=== PATIENT | male | born 1960 | race Caucasian/White ===

== ENCOUNTER 2017-07-27 17:48 | Emergency (ER) | payer OTHER ==
[2017-07-27 18:08] LABS: #Lymphocytes 1.9 thou/uL (1.20-3.40); #Monocytes 0.8 thou/uL (0.11-0.59); %Basophils 0.8 % (0.0-1.0); %Eosinophils 0.7 % (0.0-10.0); %Lymphocytes 32.4 % (21.0-51.0); %Monocytes 13.9 % (0.0-10.0); %Neutrophils 52.2 % (42.0-75.0); Hemoglobin 17.8 g/dL (14.0-18.0); Mean Corpuscular HGB CONC 35.1 g/dL (32.0-36.0); Mean Corpuscular Volume 91.1 fl (80.0-94.0); Mean Platelet Volume 7.7 fL (7.4-10.4); Platelet Count 190 thou/uL (130-400); Red Blood Cell (RBC) Count 5.56 mill/uL (4.70-6.10); White Blood Cell (WBC) Count 5.8 thou/uL (4.8-10.8)
[2017-07-27 18:33] LABS: CKMB 2.1 ng/mL (0-6.6); Troponin I 0.011 ng/mL (< 0.028)
[2017-07-27 18:41] LABS: ALT (SGPT) 17 U/L (8-55); AST (SGOT) 32 U/L (5-34); Albumin 4.1 g/dL (3.5-5.0); Alkaline Phosphatase 80 U/L (40-150); Anion Gap 14 mmol/L (10-20); BUN (Urea Nitrogen) 15 mg/dL (8.4-25.7); Bilirubin, Total 0.8 mg/dL (0.2-1.2); CK (CPK) 58 U/L (30-200); Calc. Creatinine Clearance 0 mL/min (70-130); Calcium 10.4 mg/dL (7.8-10.44); Carbon Dioxide 21 mmol/L (22-29); Chloride 104 mmol/L (98-107); Estimated GFR-MDRD 70; Globulin 4.2 g/dL (2.4-3.5); Glucose 124 mg/dL (70-105); Lipase 55 U/L (8-78); Potassium 4.5 mmol/L (3.5-5.1); Protein, Total 8.3 g/dL (6.0-8.3); Sodium 134 mmol/L (136-145)
--- NOTE | 2017-07-27 18:58 | RAD ---
PORTABLE AP CHEST X-RAY: 07/27/17 HISTORY: Chest pain. FINDINGS: The cardiac silhouette and pulmonary vasculature are within normal limits. The lungs are clear. [place] us structures are intact. There is mild elevation left hemidiaphragm. IMPRESSION: No acute cardiopulmonary process. POS: [facility]
== END 2017-07-27 19:24 | disposition home or self-care (01) ==
LOC: ERS 17:48
DX: R07.89 Other chest pain (principal); I48.91 Unspecified atrial fibrillation; E78.5 Hyperlipidemia, unspecified; I10 Essential (primary) hypertension; Z79.899 Other long term (current) drug therapy
CPT/HCPCS: 71045; 80053; 82553; 83690; 83880; 84484; 85025; 93005; 94760

== ENCOUNTER 2017-08-19 06:04 | Day surgery (SDC) | payer OTHER, BC ==
[2017-08-18 12:13] VITALS: BMI 30.2
[2017-08-19] MEDS ORDERED: Diprivan 20 ML ONE (06:18)
--- NOTE | 2017-08-19 09:07 | DIS ---
He was seen in the outpatient facility today for an elective cardioversion for his atrial fibrillatio n. DIAGNOSIS: Atrial fibrillation. His other diagnoses include hypertension, diabetes and excessive al cohol use. DISCHARGE DIAGNOSES: Atrial fibrillation. His other diagnoses include hypertension, diabetes and ex cessive alcohol use. PROCEDURES IN HOSPITAL: Electrical cardioversion of atrial fibrillation back to normal sinus rhythm. DISCHARGE MEDICATIONS: Metoprolol succinate ER 100 mg daily, amlodipine 5 mg daily, fenofibrate 120 mg daily, Xarelto 20 mg daily, and Multaq 400 mg b.i.d. with meals. He will continue him back in the office in the next 2 weeks with repeat evaluation and EKG. At some point in time he will need to undergo stress testing. This was advised in the past, the insurance ap parently did not cover it and we will try to reestablish this. The patient has multiple risk factors for coronary artery disease which does include atrial fibrillation as well as his diabetes and hyper tension. His followup will be with me in the next 1-2 weeks. He will see also his primary care physician as i ndicated by that physician and he will also follow up with the plant wrapper in the next month or so. He already apparently has an appointment with him set up. HOSPITAL COURSE: As noted above. He presented with atrial fibrillation which has been an ongoing pr oblem and was advised to undergo an attempt at electrical cardioversion. He had been on Xarelto sinc e May and he underwent the procedure today without difficulties or complications. He was succes sfully converted with one attempt at 200 joules. He does unfortunately continue to drink at least a 12 pack beer a day which may obviously put him at increased risk for further atrial fibrillation. He also had problems taking the Multaq saying it caused him to have nausea and diarrhea and he stopped taking the medication. He only took it for 1-2 days prior to the procedure and has not had any recen tly or at least in the last 1-2 days. At this time, we will advise him to resume that medication wit h meals and hopefully this will decrease the nausea and hopefully the diarrhea also. If not, may nee d to find another medication for this gentleman. However, I do not know whether he has underlying co ronary artery disease which makes it somewhat difficult for some of the anti-arrhythmic medications i f he has undiagnosed coronary artery disease and ischemia. His ejection fraction had been stable at 50-55% and there has been no history in the past of known coronary artery disease.
--- NOTE | 2017-08-19 09:19 | OP ---
INDICATION FOR PROCEDURE: A 57-year-old patient with persistent atrial fibrillation. He was advised that he has been on Xarelto since May. He was advised to undergo electrocardioversion of his a trial fibrillation. He was taken to the recovery area where he underwent short acting propofol. [place] malloy one attempt at 200 joules, he was successfully converted back to normal sinus rhythm without compl ications or difficulties. His heart rate was in the 80s after he converted back to sinus rhythm.
== END 2017-08-19 09:15 | disposition home or self-care (01) ==
LOC: CCL 06:04
PROVIDERS: ATTEND Internal Medicine Cardiovascular Disease
DX: I48.1 Persistent atrial fibrillation (principal); I10 Essential (primary) hypertension; E11.9 Type 2 diabetes mellitus without complications; Z79.01 Long term (current) use of anticoagulants; Z79.899 Other long term (current) drug therapy; Z88.8 Allergy status to other drugs, medicaments and biological substances; Z72.89 Other problems related to lifestyle; Z98.818 Other dental procedure status
CPT/HCPCS: J2704

== ENCOUNTER 2020-03-28 05:41 | Outpatient (CLI) | payer OTHER ==
[2020-03-29 14:48] LABS: SARS-CoV-2 MS2 Positive; SARS-CoV-2 N Gene Negative; SARS-CoV-2 S Gene Negative; SARS-CoV-2 by NAA Not Detected (NotDetected); SARS-CoV-2 orf1ab Negative
== END 2020-03-28 05:42 | disposition home or self-care (01) ==
LOC: LABBT 05:41
PROVIDERS: ATTEND Internal Medicine Cardiovascular Disease
DX: I48.91 Unspecified atrial fibrillation (principal); Z20.828 Contact with and (suspected) exposure to other viral communicable diseases
CPT/HCPCS: 87635; U0003

== ENCOUNTER 2020-04-02 10:34 | Observation (INO) | payer OTHER ==
[2020-04-02] MEDS ORDERED: Heparin 10,000 UNITS/ 10 ML VIAL ONE ×2 (13:45→14:53)
[2020-04-02] MEDS ORDERED: Fentanyl 100 MCG/2 ML VIAL ONE ×4 (13:51→17:15)
[2020-04-02] MEDS ORDERED: Lidocaine 2% Jelly 5 ML TUBE ONE (14:18)
[2020-04-02] MEDS ORDERED: Phenylephrine 10 MG/ML VIAL ONE (14:40)
[2020-04-02] MEDS ORDERED: Heparin 25,000 units/D5W 500 ML ONE (14:54)
[2020-04-02] MEDS ORDERED: Midazolam HCl 2 mg/2 ml Vial ONE (15:33)
[2020-04-02] MEDS ORDERED: Dexamethasone 20 MG/5 ML VIAL ONE (15:36)
[2020-04-02] MEDS ORDERED: PHENYLEPHRINE-NS 100 MCG/ML 10 ML SYRINGE ONE (15:36)
[2020-04-02] MEDS ORDERED: Ondansetron PF 4 MG/2 ML Vial ONE (15:36)
[2020-04-02] MEDS ORDERED: Lidocaine 1% PF 5 ML VIAL ONE (15:36)
[2020-04-02] MEDS ORDERED: Rocuronium Bromide 10 MG/ML (10ML VIAL) ONE (15:36)
[2020-04-02] MEDS ORDERED: PROPOFOL 200 MG/20 ML VIAL ONE (15:36)
[2020-04-02] MEDS ORDERED: Isoproterenol 0.2 MG/1 ML AMP ONE (16:51)
[2020-04-02] MEDS ORDERED: Protamine Sulfate 50 MG/5 ML VIAL ONE (17:57)
[2020-04-02] MEDS ORDERED: SUGAMMADEX SODIUM 200 MG/2 ML VIAL ONE (18:05)
[2020-04-02] MEDS ORDERED: Ketorolac Tromethamine 30 MG/ML VIAL ONE (18:33)
[2020-04-02 20:12] VITALS: BMI 30.5
[2020-04-02] MEDS ORDERED: Ketorolac Tromethamine 30 MG/ML VIAL IVP PRN (21:13)
[2020-04-02] MEDS ORDERED: Ondansetron HCl/PF 4 MG/2 ML Vial IVP PRN (21:15)
[2020-04-02] MEDS ORDERED: Promethazine HCl 25 MG/ML VIAL IM/IV PRN (21:15)
[2020-04-02] MEDS ORDERED: Acetaminophen/Codeine 30-300mg Tablet PO PRN ×2 (21:15)
--- NOTE | 2020-04-02 23:36 | OP ---
DATE OF PROCEDURE: 04/02/2020 ADDITIONAL REFERRING PHYSICIAN: Dr. Lilliam Max. REASON FOR PROCEDURE: Mr. Haro is a 59-year-old gentleman, history of paroxysmal atrial fibrillation. He had a cardioversion in 2018, but had recurred and has been persisting over the last few months. He has moderate left atrial enlargement, has been anticoagulated without fail with oral anticoagulants. Previously, he has been tried on Multaq. DESCRIPTION OF PROCEDURE: Patient received general anesthesia by anesthesia specialist. Left and right femoral vein were prepped, draped, anesthetized using subcutaneous lidocaine, and under ultrasound guidance, both femoral veins were cannulated x2. On the at left side, an 8-Yemeni and an 11-Yemeni sheath were used. Through these sheaths, an intracardiac echocardiogram probe was passed into the esophagus to monitor the transeptal puncture, the pericardial space, and the catheter manipulation throughout the procedure. Also from the left femoral vein, a Decanav mapping catheter was advanced to the right ventricle, his bundle right atrium, and CS position. From the right femoral venous access, two 8-Yemeni short sheath were exchanged to two SL1 sheaths. IV heparin was administered at this point in a bolus and drip fashion and ACT was checked periodically and heparin was adjusted to keep ACT over 350. The transseptal puncture x2 were performed under ultrasound and fluoroscopic guidance. Through the SL1 sheath, a ThermoCool SFST and a 20-pole Lasso catheter were advanced to the left atrium. 3D map of the left atrium was obtained. Two left-sided and two right-sided pulmonary veins were noted. Standard pulmonary venous isolation procedure was performed. Also, a superior line and an inferior line were used to achieve isolation of the posterior wall. Minimal conduction was noted at the end of this procedure and posterior wall at the esophageal sites only extensive ablation, the patient remained in atrial fibrillation. Eventually, cardioversion was performed with 300 joule shock to restore sinus rhythm. During catheter manipulation, an additional atrial flutter was induced, which appeared to be isthmus dependent flutter in morphology but terminated during mapping and did not reinduce. Throughout the posterior wall ablations, close attention was paid to the esophageal temperature to avoid excessive heating, any temperature rises were met with extra high-speed irrigation through the ablation catheter. Isuprel was administered at this point and any reconnections re-ablated. The patient remained in sinus rhythm at the end of the procedure. Catheters were removed from the left side and long sheaths were exchanged for short sheaths. IV heparin was stopped and then reversed with protamine. Vascade closure was performed in all four femoral venous access sites. Prior to removing the catheters, intracardiac echocardiogram probe proved no change in the baseline small pericardial effusion and also pericardial silhouette did not change significantly. A total of 33 minutes and 25 seconds of RF ablation was delivered at 40 harris, 113 ablation lesion was counted. NUMERICAL FINDINGS: In sinus rhythm during Isuprel, the cycle length was 523 milliseconds, AZ 99 milliseconds, QRS 84 milliseconds, QT 453 milliseconds, AH 108 milliseconds, HV 44 milliseconds. AV Wenckebach cycle length was 340 milliseconds. Retrograde Wenckebach cycle length was 480 milliseconds. On Isuprel, the AV radha ERP was 500/180 milliseconds. No dual AV radha physiology was demonstrated. Concentric retrograde VA conduction is seen during LV pacing from the ablation catheter. CONCLUSION: 1. Atrial fibrillation at baseline. 2. Moderate scarring noted throughout the left atrium. 3. Standard pulmonary venous isolation procedure and posterior wall isolation were performed with minimal posterior wall residual at the esophageal sites. 4. Cardioversion restored sinus rhythm. 5. No changes of the baseline small pericardial effusion and no other complications noted. PLAN: Continue oral anticoagulation. Monitor for recurrent arrhythmias. Job ID: [id number]
[2020-04-02] MEDS: Sucralfate 1 GM TAB PO SCH (23:56)
[2020-04-03] MEDS: Sucralfate 1 GM TAB PO SCH (05:31)
[2020-04-03 07:32] VITALS: BP 146/88; TEMP 98.2
[2020-04-03] MEDS ORDERED: Furosemide 40 MG/4 ML VIAL SLOW IVP SCH (08:56)
[2020-04-03] MEDS ORDERED: Potassium Chloride 20 MEQ TAB PO SCH (08:56)
[2020-04-03] MEDS ORDERED: Rivaroxaban 10 MG TAB PO SCH (09:00)
[2020-04-03] MEDS ORDERED: Amlodipine 5 MG TAB PO SCH (09:00)
[2020-04-03] MEDS ORDERED: Metoprolol Tartrate 100 MG TAB PO SCH (09:00)
[2020-04-03] MEDS ORDERED: Fenofibrate Nanocrystallized 145 MG TAB PO SCH (09:00)
[2020-04-03] MEDS ORDERED: Lorazepam 2 MG/ML VIAL SLOW IVP PRN (09:19)
--- NOTE | 2020-04-04 05:45 | DIS ---
DATE OF ADMISSION: 04/02/2020 DATE OF DISCHARGE: 04/03/2020 23-hour observation. DIAGNOSIS: Paroxysmal atrial fibrillation. CONDITION AT DISCHARGE: Stable. HISTORY OF PRESENT ILLNESS: Mr. Haro is a 59-year-old gentleman with a history of paroxysmal atrial fibrillation. He underwent cardioversion in 2018, did have recurrence and was seen to have moderate left atrial enlargement. He was under adequate anticoagulation for 30 days, previously tried on Multaq, but ultimately elected for an ablation procedure. There was moderate scarring noted throughout the left atrium. The pulmonary veins were isolated in addition to the posterior wall. Cardioversion is required that restored sinus rhythm. Total ablation time was 33 minutes and 25 seconds. He did well overnight with no recurrent atrial arrhythmias or bleeding complications at the groin site. He did have some shortness of breath, but overall is eager to discharge home. He is slightly anxious and in the initial stages of alcohol withdrawal tremors this morning. OBJECTIVE: VITAL SIGNS: Stable. Heart rate 83, blood pressure 146/79, respirations 16, and oxygen 96% on room air. GENERAL: The patient is alert and oriented. He does appear anxious with a resting tremor. He is afebrile. He is in no apparent distress. Resting in bed at the time of the exam. HEENT: Normocephalic, atraumatic. Sclerae anicteric. EOMs are intact. Oral mucosa is moist and pink with adequate dentition. NECK: Supple. Positive for jugular venous distention. There is no lymphadenopathy. Trachea is midline. LUNGS: Some bibasilar crackles throughout, otherwise no wheezes or rhonchi appreciated. CARDIAC: Heart rate is irregularly irregular with crisp S1 and S2. PMI is nondisplaced. ABDOMEN: Obese, soft, and nontender without palpable masses. EXTREMITIES: Bilateral groin sites are stable without hematoma or evidence of bleeding complication. Bilateral lower extremities are warm and dry to touch without clubbing, cyanosis, or edema. NEUROLOGIC: Nonfocal. As mentioned, he is appearing somewhat anxious and in the starting phase of alcohol withdrawal tremor. Gait was assessed and stable. DISCHARGE INSTRUCTIONS: No lifting more than 15 pounds for 1 week. No soaking baths for 1 week. No driving for 1 week, and may resume activity gradually and as tolerated. This morning, he admitted to heavy alcohol intake and has experienced withdrawal before. These symptoms were mitigated with a dose of 1 mg Ativan. He was instructed not to drive and his , who picked him up, is also aware of his driving instructions. He will follow up in 6 weeks or sooner if symptoms dictate. 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 He was highly encouraged to cut back on his alcohol intake. DISCHARGE MEDICATIONS: Resuming home medications as previously taken. Continue Xarelto 20 mg q.p.m. New prescription for: 1. Protonix 40 mg daily x30 days. 2. Carafate 1 g before meals and at bedtime x2 weeks. 3. Lasix 40 mg daily x3 days and as needed, to be taken with K-Dur 20 mEq daily x3 days, then just Lasix. No additional changes to his home medication list. Job ID: [id number] MTDD
--- NOTE | 2020-04-06 13:03 | EKG ---
Test Reason : STAT Blood Pressure : / mmHG Vent. Rate : 100 BPM Atrial Rate : 100 BPM P-R Int : 198 ms QRS Dur : 098 ms QT Int : 364 ms P-R-T Axes : 046 -02 043 degrees QTc Int : 469 ms Normal sinus rhythm Septal infarct , age undetermined T wave abnormality, consider anterior ischemia Abnormal ECG Confirmed by SAROJ WALSH MD ([id number]) on 04/06/2020 1:02:53 PM Referred By: Confirmed By:SAROJ WALSH MD
--- NOTE | 2020-04-06 13:05 | EKG ---
Test Reason : Blood Pressure : / mmHG Vent. Rate : 086 BPM Atrial Rate : 086 BPM P-R Int : 206 ms QRS Dur : 102 ms QT Int : 376 ms P-R-T Axes : 068 014 040 degrees QTc Int : 449 ms Normal sinus rhythm T wave abnormality, consider anterior ischemia Abnormal ECG When compared with ECG of 02-APR-2020 18:23, (Unconfirmed) Criteria for Septal infarct are no longer Present Confirmed by SAROJ WALSH MD ([id number]) on 04/06/2020 1:05:16 PM Referred By: JAMAAL Confirmed By:SAROJ WALSH MD
== END 2020-04-03 09:45 | disposition home or self-care (01) ==
LOC: CCL 10:34 → 2SW 12:23
PROVIDERS: ADMIT Internal Medicine Cardiovascular Disease; ATTEND Internal Medicine Cardiovascular Disease
PROC: 4A023FZ Measurement of Cardiac Rhythm, Percutaneous Approach (ICD-10-PCS; principal; 2020-04-02)
PROC: 4A0234Z Measurement of Cardiac Electrical Activity, Percutaneous Approach (ICD-10-PCS; 2020-04-02)
PROC: 02583ZZ Destruction of Conduction Mechanism, Percutaneous Approach (ICD-10-PCS; 2020-04-02)
PROC: 02K83ZZ Map Conduction Mechanism, Percutaneous Approach (ICD-10-PCS; 2020-04-02)
DX: I48.19 Other persistent atrial fibrillation (principal); I51.7 Cardiomegaly; I10 Essential (primary) hypertension; E11.9 Type 2 diabetes mellitus without complications; E78.5 Hyperlipidemia, unspecified; H91.90 Unspecified hearing loss, unspecified ear; Z79.01 Long term (current) use of anticoagulants; Z79.899 Other long term (current) drug therapy
CPT/HCPCS: 85347; 92960; 93005; 93010; 93613; 93623; 93655; 93656; 93662; 96372; 96374; C1732; C1759; G0378; J1100; J1644; J1885; J1940; J2060; J2250; J2370; J2405; J2704; J2720; J3010

== ENCOUNTER 2020-05-20 06:22 | Outpatient (CLI) | payer OTHER ==
[2020-05-20 11:41] LABS: Hemoglobin 16.2 g/dL (14.0-18.0); Mean Corpuscular HGB CONC 34.6 G/DL (32.0-36.0); Mean Corpuscular Hemoglobin 31.8 PG (27.0-33.0); Mean Corpuscular Volume 91.8 fl (80.0-100.0); Mean Platelet Volume 10.3 fl (7.4-10.4); Platelet Count 181 10x3/uL (130-400); RBC Distribution Width 12.4 % (11.5-14.5); White Blood Cell (WBC) Count 4.8 10x3/uL (4.5-11.0)
[2020-05-20 11:54] LABS: Anion Gap 18 mmol/L (10-20); BUN (Urea Nitrogen) 8 mg/dL (8.4-25.7); Calc. Creatinine Clearance 0 mL/min (70-130); Calcium 8.7 mg/dL (7.8-10.44); Carbon Dioxide 19 mmol/L (23-31); Chloride 103 mmol/L (98-107); Estimated GFR-MDRD 78; Glucose 128 mg/dL (80-115); Potassium 4.3 mmol/L (3.5-5.1); Sodium 136 mmol/L (136-145)
[2020-05-20 12:00] LABS: INR-International Normal Ratio 1.3; PTT 41.7 sec (22.0-33.0); Prothrombin Time 13.5 sec (9.5-12.1)
[2020-05-20 23:33] LABS: SARS-CoV-2 MS2 Positive; SARS-CoV-2 N Gene Negative; SARS-CoV-2 S Gene Negative; SARS-CoV-2 by NAA Not Detected (NotDetected); SARS-CoV-2 orf1ab Negative
== END 2020-05-20 06:23 | disposition home or self-care (01) ==
LOC: LABBT 06:22
PROVIDERS: ATTEND Internal Medicine Cardiovascular Disease
DX: Z01.818 Encounter for other preprocedural examination (principal); I48.91 Unspecified atrial fibrillation; Z20.828 Contact with and (suspected) exposure to other viral communicable diseases
CPT/HCPCS: 80048; 85027; 85610; 85730; 87635; 93005; 93010; U0003

== ENCOUNTER 2020-05-23 10:10 | Day surgery (SDC) | payer OTHER ==
[2020-05-22 14:23] VITALS: BMI 30.1
[2020-05-23] MEDS ORDERED: PROPOFOL 20 ML ONE (13:14)
--- NOTE | 2020-05-23 17:01 | OP ---
DATE OF PROCEDURE: 05/23/2020 PROCEDURE PERFORMED: Electrical cardioversion. ADDITIONAL REFERRING PHYSICIAN: Dr. Lilliam Max. REASON FOR PROCEDURE: Mr. Haro is a 60-year-old man with history of persistent atrial fibrillation, pulmonary venous isolation procedure on April 02, 2020. Recurrent 2:1 conducted atrial flutter is seen. He is here for cardioversion. He has been well anticoagulated. DESCRIPTION OF PROCEDURE: The patient received propofol by Anesthesia specialist. After adequate level of sedation achieved, a synchronized 70-joule shock promptly converted the patient back to sinus rhythm. CONCLUSION: Successful cardioversion. PLAN: Continue oral anticoagulation. Continue previously initiated Rythmol and monitor for recurrent arrhythmias. Job ID: [id number]
--- NOTE | 2020-05-27 06:57 | EKG ---
Test Reason : PREOP Blood Pressure : / mmHG Vent. Rate : 119 BPM Atrial Rate : 119 BPM P-R Int : 162 ms QRS Dur : 098 ms QT Int : 318 ms P-R-T Axes : 056 016 -11 degrees QTc Int : 447 ms Sinus tachycardia with occasional Premature ventricular complexes and Fusion complexes Incomplete right bundle branch block Possible Anterior infarct (cited on or before 21-MAR-2020) Abnormal ECG Confirmed by JILLIAN ORTIZ, SAROJ ([id number]) on 05/27/2020 6:57:13 AM Referred By: JAMAAL Confirmed By:SAROJ WALSH MD
== END 2020-05-23 14:45 | disposition home or self-care (01) ==
LOC: CCL 10:10
PROVIDERS: ATTEND Internal Medicine Cardiovascular Disease
PROC: 5A2204Z Restoration of Cardiac Rhythm, Single (ICD-10-PCS; principal; 2020-05-23)
DX: I48.19 Other persistent atrial fibrillation (principal); I48.4 Atypical atrial flutter; E11.9 Type 2 diabetes mellitus without complications; I10 Essential (primary) hypertension; I51.7 Cardiomegaly; E78.5 Hyperlipidemia, unspecified
CPT/HCPCS: 92960; 93005; 93010; J2704

== ENCOUNTER 2021-03-20 11:08 | Outpatient (CLI) | payer BC, OTHER ==
[2021-03-20 13:28] LABS: Mean Corpuscular HGB CONC 35.9 g/dL (32.0-36.0); Mean Corpuscular Hemoglobin 32.7 pg (27.0-33.0); Mean Platelet Volume 10.7 fl (7.4-10.4); Platelet Count 186 10x3/uL (150-450); RBC Distribution Width 12.6 % (11.5-14.5); White Blood Cell (WBC) Count 7.6 10x3/uL (3.5-10.5)
[2021-03-20 13:34] LABS: Anion Gap 14 mmol/L (10-20); BUN (Urea Nitrogen) 11 mg/dL (8.4-25.7); Calc. Creatinine Clearance 0 mL/min (70-130); Carbon Dioxide 21 mmol/L (23-31); Chloride 106 mmol/L (98-107); Glucose 134 mg/dL (80-115); PTT 26.7 sec (22.0-33.0); Potassium 4.4 mmol/L (3.5-5.1); Prothrombin Time 10.9 sec (9.5-12.1); Sodium 137 mmol/L (136-145)
[2021-03-22 00:16] LABS: SARS-CoV-2 PCR by NAA Not Detected (NotDetected)
== END 2021-03-20 11:09 | disposition home or self-care (01) ==
LOC: LABBT 11:08
PROVIDERS: ATTEND Internal Medicine Cardiovascular Disease
DX: Z01.812 Encounter for preprocedural laboratory examination (principal); I48.91 Unspecified atrial fibrillation; Z20.822 Contact with and (suspected) exposure to COVID-19
CPT/HCPCS: 80048; 85027; 85610; 85730; U0003; U0005

== ENCOUNTER 2021-03-25 05:57 | Day surgery (SDC) | payer BC, OTHER ==
[2021-03-24 11:10] VITALS: BMI 29.5
[2021-03-25] MEDS ORDERED: Heparin 25,000 units/D5W 500 ML ONE (06:48)
[2021-03-25] MEDS ORDERED: Heparin 10,000 UNITS/ 10 ML VIAL ONE (06:48)
[2021-03-25] MEDS ORDERED: Fentanyl 250 MCG/5 ML VIAL ONE (07:18)
[2021-03-25] MEDS ORDERED: Phenylephrine 10 MG/ML VIAL ONE ×2 (07:18→07:19)
[2021-03-25] MEDS ORDERED: Midazolam HCl 2 mg/2 ml Vial ONE ×3 (07:19→10:31)
[2021-03-25] MEDS ORDERED: Glycopyrrolate 0.2 MG/ML 5 ML SYRINGE ONE (07:27)
[2021-03-25] MEDS ORDERED: Ondansetron PF 4 MG/2 ML Vial ONE (07:27)
[2021-03-25] MEDS ORDERED: Ketorolac Tromethamine 30 MG/ML VIAL ONE (07:27)
[2021-03-25] MEDS ORDERED: PHENYLEPHRINE-NS 100 MCG/ML 10 ML SYRINGE ONE (07:27)
[2021-03-25] MEDS ORDERED: Rocuronium Bromide 10 MG/ML (10ML VIAL) ONE (07:27)
[2021-03-25] MEDS ORDERED: Dexamethasone 20 MG/5 ML VIAL ONE (07:27)
[2021-03-25] MEDS ORDERED: PROPOFOL 200 MG/20 ML VIAL ONE (07:27)
[2021-03-25] MEDS ORDERED: Lidocaine 1% PF 5 ML VIAL ONE (07:27)
[2021-03-25] MEDS ORDERED: Isoproterenol 0.2 MG/1 ML AMP ONE ×2 (08:06→09:33)
[2021-03-25] MEDS ORDERED: SUGAMMADEX SODIUM 200 MG/2 ML VIAL ONE (08:35)
[2021-03-25] MEDS ORDERED: HYDROmorphone 2 MG/ML VIAL ONE (09:15)
[2021-03-25] MEDS ORDERED: Protamine Sulfate 50 MG/5 ML VIAL ONE ×2 (09:44)
[2021-03-25] MEDS ORDERED: Furosemide 40 MG TAB PO PRN (10:16)
[2021-03-25] MEDS ORDERED: Potassium Chloride 20 MEQ TAB PO PRN (10:16)
[2021-03-25] MEDS ORDERED: Sucralfate 1 GM TAB PO SCH (11:30)
== END 2021-03-25 14:54 | disposition home or self-care (01) ==
LOC: CCL 05:57
PROVIDERS: ATTEND Internal Medicine Cardiovascular Disease
PROC: 02583ZZ Destruction of Conduction Mechanism, Percutaneous Approach (ICD-10-PCS; principal; 2021-03-25)
PROC: 4A023FZ Measurement of Cardiac Rhythm, Percutaneous Approach (ICD-10-PCS; principal; 2021-03-25)
PROC: 02K83ZZ Map Conduction Mechanism, Percutaneous Approach (ICD-10-PCS; principal; 2021-03-25)
PROC: 4A0234Z Measurement of Cardiac Electrical Activity, Percutaneous Approach (ICD-10-PCS; principal; 2021-03-25)
DX: I48.19 Other persistent atrial fibrillation (principal); I48.4 Atypical atrial flutter; H91.93 Unspecified hearing loss, bilateral; F10.10 Alcohol abuse, uncomplicated; E11.9 Type 2 diabetes mellitus without complications; E78.5 Hyperlipidemia, unspecified; Z91.14 Patient's other noncompliance with medication regimen; Z79.01 Long term (current) use of anticoagulants; Z79.899 Other long term (current) drug therapy
CPT/HCPCS: 76942; 85347; 93005; 93613; 93622; 93623; 93655; 93656; 93662; C1732; C1759; C1884; J1100; J1170; J1644; J1885; J2250; J2370; J2405; J2704; J2720; J3010

== ENCOUNTER 2021-05-12 11:22 | Outpatient (CLI) | payer BC, OTHER ==
[2021-05-12 13:17] LABS: Hemoglobin 16.4 g/dL (13.5-17.5); Mean Corpuscular HGB CONC 35.8 g/dL (32.0-36.0); Mean Corpuscular Volume 92.2 fl (81.2-95.1); Mean Platelet Volume 10.7 fl (7.4-10.4); Platelet Count 189 10x3/uL (150-450); RBC Distribution Width 12.5 % (11.5-14.5); Red Blood Cell (RBC) Count 4.97 10x6/uL (4.32-5.72); White Blood Cell (WBC) Count 6.9 10x3/uL (3.5-10.5)
[2021-05-12 13:25] LABS: PTT 27.1 sec (22.0-33.0); Prothrombin Time 11.1 sec (9.5-12.1)
[2021-05-12 13:29] LABS: Anion Gap 14 mmol/L (10-20); BUN (Urea Nitrogen) 11 mg/dL (8.4-25.7); Calc. Creatinine Clearance 0 mL/min (70-130); Calcium 9.2 mg/dL (7.8-10.44); Carbon Dioxide 21 mmol/L (23-31); Chloride 107 mmol/L (98-107); Glucose 120 mg/dL (80-115); Potassium 4.3 mmol/L (3.5-5.1); Sodium 138 mmol/L (136-145)
[2021-05-12 21:58] LABS: SARS-CoV-2 PCR by NAA Not Detected (NotDetected)
== END 2021-05-12 11:23 | disposition home or self-care (01) ==
LOC: LABBT 11:22
PROVIDERS: ATTEND Internal Medicine Cardiovascular Disease
DX: Z01.812 Encounter for preprocedural laboratory examination (principal); I48.4 Atypical atrial flutter; Z20.822 Contact with and (suspected) exposure to COVID-19
CPT/HCPCS: 80048; 85027; 85610; 85730; U0003; U0005

== ENCOUNTER 2021-05-15 11:37 | Day surgery (SDC) | payer BC, OTHER ==
[2021-05-14 14:54] VITALS: BMI 29.2
[2021-05-15] MEDS ORDERED: PROPOFOL 20 ML ONE (12:36)
[2021-05-15] MEDS ORDERED: Lidocaine 2% PF 5 ML VIAL ONE (12:36)
[2021-05-15] MEDS ORDERED: Lidocaine 1% PF 5 ML VIAL ONE (12:45)
== END 2021-05-15 13:55 | disposition home or self-care (01) ==
LOC: CCL 11:37
PROVIDERS: ATTEND Internal Medicine Cardiovascular Disease
PROC: 5A2204Z Restoration of Cardiac Rhythm, Single (ICD-10-PCS; principal; 2021-05-15)
DX: I48.4 Atypical atrial flutter (principal); I48.19 Other persistent atrial fibrillation; E11.9 Type 2 diabetes mellitus without complications; I10 Essential (primary) hypertension; E78.5 Hyperlipidemia, unspecified; Z85.828 Personal history of other malignant neoplasm of skin; Z98.890 Other specified postprocedural states; Z79.01 Long term (current) use of anticoagulants; Z79.899 Other long term (current) drug therapy
CPT/HCPCS: 92960; 93005; 93010; J2001; J2704

== ENCOUNTER 2023-01-28 13:35 | Emergency (ER) | payer BC, OTHER ==
[2023-01-28 16:05] LABS: #Monocytes 1.3 thou/uL (0.11-0.59); #Neutrophils 7.1 thou/uL (1.40-6.50); %Basophils 0.3 % (0.0-1.0); %Eosinophils 0.4 % (0.0-10.0); %Lymphocytes 10.5 % (21.0-51.0); %Monocytes 13.7 % (0.0-10.0); %Neutrophils 74.8 % (42.0-75.0); Mean Corpuscular HGB CONC 35.9 g/dL (32.0-36.0); Mean Corpuscular Hemoglobin 33.7 pg (27.0-31.0); Mean Platelet Volume 9.5 fL (7.4-10.4); Platelet Count 260 10x3/uL (130-400); RBC Distribution Width 12.7 % (11.5-14.5); Red Blood Cell (RBC) Count 4.15 mill/uL (4.70-6.10); White Blood Cell (WBC) Count 9.5 10x3/uL (4.8-10.8)
[2023-01-28 16:30] LABS: ALT (SGPT) 10 U/L (8-55); AST (SGOT) 14 U/L (5-34); Albumin 3.7 g/dL (3.4-4.8); Alkaline Phosphatase 82 U/L (40-110); Anion Gap 14 mmol/L (10-20); BUN (Urea Nitrogen) 7 mg/dL (8.4-25.7); Bilirubin, Total 0.8 mg/dL (0.2-1.2); Calc. Creatinine Clearance 0 mL/min (70-130); Calcium 9.5 mg/dL (7.8-10.44); Carbon Dioxide 22 mmol/L (23-31); Chloride 100 mmol/L (98-107); Estimated GFR 98; Glucose 119 mg/dL (80-115); Protein, Total 8.7 g/dL (5.8-8.1); Sodium 132 mmol/L (136-145)
[2023-01-28] MEDS ORDERED: Piperacillin/Tazobactam 3.375 GM VIAL ONE (16:42)
[2023-01-28] MEDS ORDERED: Vancomycin 1 GM/200 ML (FROZEN) BAG ONE (17:20)
== END 2023-01-28 18:18 | disposition short-term general hospital (02) ==
LOC: ERS 13:35
DX: E11.621 Type 2 diabetes mellitus with foot ulcer (principal); L03.115 Cellulitis of right lower limb; E78.5 Hyperlipidemia, unspecified; I10 Essential (primary) hypertension; F17.210 Nicotine dependence, cigarettes, uncomplicated; Z79.899 Other long term (current) drug therapy
CPT/HCPCS: 36415; 80053; 83605; 85025; 85652; 86140; 87040; 96365; 96375; J2543; J3370-JW

== ENCOUNTER 2025-02-15 15:08 | Inpatient (IN) | payer OTHER, MEDICARE, BC ==
[2025-02-15] MEDS: VANCOMYCIN 1.75 GM/350 ML Premix BAG IVPB SCH (16:30)
[2025-02-15] MEDS ORDERED: Cefepime 2 GM VIAL ONE (16:37)
[2025-02-15 16:47] LABS: Hematocrit 35.5 % (42.0-52.0); Hemoglobin 12.6 g/dL (14.0-18.0); Mean Corpuscular Hemoglobin 32.0 pg (27.0-31.0); Mean Corpuscular Volume 90.1 fL (78.0-98.0); Platelet Count 358 10x3/uL (130-400); Red Blood Cell (RBC) Count 3.94 mill/uL (4.70-6.10); White Blood Cell (WBC) Count 7.52 10x3/uL (4.8-10.8)
[2025-02-15 17:08] LABS: ALT (SGPT) 36 U/L (Less than 45); AST (SGOT) 35 U/L (11-34); Albumin 3.0 g/dL (3.1-4.5); Alkaline Phosphatase 79 U/L (40-110); Anion Gap 14 mmol/L (10-20); BUN (Urea Nitrogen) 9 mg/dL (8.4-25.7); Bilirubin, Total 0.5 mg/dL (0.3-1.2); Calc. Creatinine Clearance 0 mL/min (70-130); Calcium 9.1 mg/dL (7.8-10.44); Carbon Dioxide 20 mmol/L (23-31); Chloride 101 mmol/L (98-107); Globulin 5.0 g/dL (2.4-3.5); Glucose 143 mg/dL (80-115); Potassium 3.5 mmol/L (3.5-5.1); Sodium 131 mmol/L (136-145)
[2025-02-15 18:04] LABS: Platelet Adequacy Comment Platelets Normal; Polychromasia SLIGHT = 2-3 cells HPF (0-2); Reflex for Review?? YES; Smudge Cells 7.0 %; Toxic Granulation SLIGHT
[2025-02-15] MEDS ORDERED: Acetaminophen 325 MG TAB PO PRN (18:24)
[2025-02-15] MEDS ORDERED: Pharmacy to Dose: VANC IVPB PRN (20:49)
[2025-02-15 20:57] VITALS: BMI 28.3
[2025-02-15] MEDS: Vancomycin 1.25 GM / NS 250 ML VIAL-2-BAG IVPB SCH (23:12)
[2025-02-15] MEDS: Vancomycin 1 GM in Premix 1 BAG IVPB SCH (23:29)
[2025-02-16 05:20] LABS: Vancomycin, Random 25.9 ug/mL (See Comment)
[2025-02-16 05:22] LABS: Anion Gap 13 mmol/L (10-20); BUN (Urea Nitrogen) 8 mg/dL (8.4-25.7); Calc. Creatinine Clearance 150 mL/min (70-130); Calcium 8.4 mg/dL (7.8-10.44); Carbon Dioxide 19 mmol/L (23-31); Chloride 107 mmol/L (98-107); Glucose 155 mg/dL (80-115); Potassium 3.5 mmol/L (3.5-5.1); Sodium 135 mmol/L (136-145)
[2025-02-16] MEDS: Enoxaparin 40 MG (0.4 mL) SYRINGE SC SCH (07:08)
[2025-02-16] MEDS ORDERED: Ondansetron PF 4 MG/2 ML Vial ONE (07:24)
[2025-02-16] MEDS ORDERED: PROPOFOL 20 ML ONE ×2 (07:24→08:10)
[2025-02-16] MEDS ORDERED: PHENYLEPHRINE-NS 100 MCG/ML 10 ML SYRINGE ONE (07:28)
[2025-02-16 09:18] VITALS: BMI 28.3
[2025-02-16] MEDS: Apixaban 5 MG TAB PO SCH (20:59)
[2025-02-17 05:27] LABS: Anion Gap 12 mmol/L (10-20); BUN (Urea Nitrogen) 10 mg/dL (8.4-25.7); Calc. Creatinine Clearance 148 mL/min (70-130); Calcium 8.7 mg/dL (7.8-10.44); Carbon Dioxide 19 mmol/L (23-31); Chloride 108 mmol/L (98-107); Glucose 161 mg/dL (80-115); Potassium 3.6 mmol/L (3.5-5.1); Sodium 135 mmol/L (136-145)
[2025-02-17] MEDS: Multivit, Therapeutic 1 TAB PO SCH (08:57)
[2025-02-17] MEDS: Losartan 25 MG TAB PO SCH (08:58)
[2025-02-17] MEDS: Ferrous Sulfate 325 MG TAB PO SCH (08:59)
[2025-02-17] MEDS ORDERED: Thiamine 100 MG TAB PO SCH (09:00)
[2025-02-17] MEDS: Multivitamin w/Zinc Stress 1 TAB PO SCH (10:20)
[2025-02-18 07:14] LABS: #Basophils 0.03 10x3/uL (0.0-0.2); #Eosinophils 0.18 10x3/uL (0.0-0.7); #Monocytes 0.72 10x3/uL (0.11-0.59); #Neutrophils 3.41 10x3/uL (1.40-6.50); %Basophils 0.5 % (0.0-1.0); %Eosinophils 2.9 % (0.0-10.0); %Lymphocytes 29.1 % (21.0-51.0); %Monocytes 11.6 % (0.0-10.0); %Neutrophils 54.8 % (42.0-75.0); Hematocrit 36.0 % (42.0-52.0); Hemoglobin 12.6 g/dL (14.0-18.0); Mean Corpuscular Hemoglobin 31.9 pg (27.0-31.0); Mean Corpuscular Volume 91.1 fL (78.0-98.0); Platelet Count 432 10x3/uL (130-400); Red Blood Cell (RBC) Count 3.95 mill/uL (4.70-6.10); White Blood Cell (WBC) Count 6.22 10x3/uL (4.8-10.8)
[2025-02-18] MEDS ORDERED: Sodium Bicarbonate 2.5 MEQ/5 ML SDV ONE (07:22)
[2025-02-18] MEDS ORDERED: Lidocaine 1% PF 5 ML VIAL ONE (07:22)
[2025-02-18 07:29] LABS: Anion Gap 15 mmol/L (10-20); BUN (Urea Nitrogen) 12 mg/dL (8.4-25.7); Calc. Creatinine Clearance 146 mL/min (70-130); Calcium 9.1 mg/dL (7.8-10.44); Carbon Dioxide 20 mmol/L (23-31); Chloride 106 mmol/L (98-107); Glucose 151 mg/dL (80-115); Potassium 3.6 mmol/L (3.5-5.1); Sodium 137 mmol/L (136-145)
[2025-02-18 07:31] LABS: Vancomycin, Random 16.7 ug/mL (See Comment)
[2025-02-20] MEDS: Valsartan 80 MG TAB PO SCH (09:30)
[2025-02-20] MEDS: Triamterene/Hydrochlorothiazide 37.5 mg/25 mg Tablet PO SCH (09:31)
[2025-02-20] MEDS: Mupirocin 1 GM TUBE TP SCH (21:07)
[2025-02-21 07:02] LABS: #Basophils 0.05 10x3/uL (0.0-0.2); #Eosinophils 0.16 10x3/uL (0.0-0.7); #Monocytes 0.77 10x3/uL (0.11-0.59); #Neutrophils 3.98 10x3/uL (1.40-6.50); %Basophils 0.7 % (0.0-1.0); %Eosinophils 2.4 % (0.0-10.0); %Lymphocytes 25.1 % (21.0-51.0); %Monocytes 11.5 % (0.0-10.0); %Neutrophils 59.4 % (42.0-75.0); Hematocrit 38.6 % (42.0-52.0); Hemoglobin 13.0 g/dL (14.0-18.0); Mean Corpuscular Hemoglobin 30.8 pg (27.0-31.0); Mean Corpuscular Volume 91.5 fL (78.0-98.0); Platelet Count 434 10x3/uL (130-400); Red Blood Cell (RBC) Count 4.22 mill/uL (4.70-6.10); White Blood Cell (WBC) Count 6.70 10x3/uL (4.8-10.8)
[2025-02-21 07:14] LABS: Anion Gap 10 mmol/L (10-20); BUN (Urea Nitrogen) 20 mg/dL (8.4-25.7); Calc. Creatinine Clearance 123 mL/min (70-130); Calcium 9.1 mg/dL (7.8-10.44); Carbon Dioxide 23 mmol/L (23-31); Chloride 104 mmol/L (98-107); Glucose 169 mg/dL (80-115); Potassium 4.2 mmol/L (3.5-5.1); Sodium 133 mmol/L (136-145)
[2025-02-21] MEDS ORDERED: fentaNYL PF 100 MCG/2 ML SYRINGE ONE (13:14)
[2025-02-21] MEDS ORDERED: PROPOFOL 20 ML ONE (13:14)
[2025-02-21] MEDS ORDERED: Ondansetron PF 4 MG/2 ML Vial ONE (13:14)
[2025-02-21] MEDS ORDERED: Cefepime 2 GM VIAL ONE (13:42)
[2025-02-21] MEDS ORDERED: PHENYLEPHRINE-NS 100 MCG/ML 10 ML SYRINGE ONE ×2 (14:06→14:15)
[2025-02-22 08:09] LABS: #Basophils 0.04 10x3/uL (0.0-0.2); #Eosinophils 0.03 10x3/uL (0.0-0.7); #Monocytes 1.00 10x3/uL (0.11-0.59); #Neutrophils 8.51 10x3/uL (1.40-6.50); %Basophils 0.3 % (0.0-1.0); %Eosinophils 0.2 % (0.0-10.0); %Lymphocytes 20.8 % (21.0-51.0); %Monocytes 8.2 % (0.0-10.0); %Neutrophils 69.8 % (42.0-75.0); Hematocrit 42.4 % (42.0-52.0); Hemoglobin 14.4 g/dL (14.0-18.0); Mean Corpuscular Hemoglobin 30.9 pg (27.0-31.0); Mean Corpuscular Volume 91.0 fL (78.0-98.0); Platelet Count 544 10x3/uL (130-400); Red Blood Cell (RBC) Count 4.66 mill/uL (4.70-6.10); White Blood Cell (WBC) Count 12.19 10x3/uL (4.8-10.8)
[2025-02-22 08:24] LABS: Anion Gap 14 mmol/L (10-20); BUN (Urea Nitrogen) 22 mg/dL (8.4-25.7); Calc. Creatinine Clearance 112 mL/min (70-130); Calcium 9.8 mg/dL (7.8-10.44); Carbon Dioxide 20 mmol/L (23-31); Chloride 103 mmol/L (98-107); Glucose 189 mg/dL (80-115); Potassium 4.1 mmol/L (3.5-5.1); Sodium 133 mmol/L (136-145)
[2025-02-22 15:52] VITALS: BP 144/93; TEMP 97.6
== END 2025-02-22 16:22 | disposition home or self-care (01) | DRG 475 ==
LOC: ERS 15:08 → SURG A 18:09
PROVIDERS: ADMIT Internal Medicine; ATTEND Internal Medicine
PROC: 3E03329 Introduction of Other Anti-infective into Peripheral Vein, Percutaneous Approach (ICD-10-PCS; 2025-02-15)
PROC: 0Y6M0ZF Detachment at Right Foot, Partial 5th Ray, Open Approach (ICD-10-PCS; principal; 2025-02-16)
PROC: 30233J1 Transfusion of Nonautologous Serum Albumin into Peripheral Vein, Percutaneous Approach (ICD-10-PCS; 2025-02-16)
PROC: 02HV33Z Insertion of Infusion Device into Superior Vena Cava, Percutaneous Approach (ICD-10-PCS; 2025-02-17)
PROC: B5181ZA Fluoroscopy of Superior Vena Cava using Low Osmolar Contrast, Guidance (ICD-10-PCS; 2025-02-17)
DX: M86.171 Other acute osteomyelitis, right ankle and foot (principal); L03.115 Cellulitis of right lower limb; G60.0 Hereditary motor and sensory neuropathy; I10 Essential (primary) hypertension; E78.5 Hyperlipidemia, unspecified; I48.0 Paroxysmal atrial fibrillation; F10.10 Alcohol abuse, uncomplicated; L08.9 Local infection of the skin and subcutaneous tissue, unspecified; Z98.890 Other specified postprocedural states; Z82.49 Family history of ischemic heart disease and other diseases of the circulatory system; Z79.899 Other long term (current) drug therapy
CPT/HCPCS: 36415; 36573; 80048; 80053; 80202; 83605; 85025; 85060; 86141; 87040; 87070; 87077; 87149; 87186; 87205; 88305; 88311; 93005; 93010; 96365; 96375; 97139; 99214; C1751; G0463; J0665; J0692; J1100; J2250; J2405; J2704; J3010; J3373; J3375; J7050; P9045